=== PATIENT | female | born 1955 | race African-American/Black ===

== ENCOUNTER 2020-12-05 19:22 | Emergency (ER) | payer OTHER, SELFPAY | END 2020-12-05 19:24 | disposition left against medical advice (07) | PROVIDERS: PCP Family Medicine | DX: Z53.21 Procedure and treatment not carried out due to patient leaving prior to being seen by health care provider (principal) | CPT/HCPCS: 99199 ==

== ENCOUNTER 2021-10-29 15:20 | Emergency (ER) | payer MEDICARE, SELFPAY ==
--- NOTE | ~2021-10-29 | XR_ITS ---
XR foot LT min 3V DATE: 10/29/2021 15:40 INDICATION: Kicked step stool. Left fifth toe and metatarsal pain TECHNIQUE: 4 views COMPARISON: None FINDINGS: There is postoperative changes from bunionectomy. Osteopenia. No recent fracture or dislocation, periosteal reaction or bone destruction is detected. Prominent posterior calcaneal enthesopathy. IMPRESSION: No fracture is detected Reviewed, dictated and finalized at location B. IMPRESSION: No fracture is detected
--- NOTE | 2021-10-29 15:38 | ED.LOWEXIN ---
HPI - Extremity Injury (Lower) General Chief Complaint: Extremity Injury, Lower Stated Complaint: L TOE INJURY Time Seen by Provider: 10/29/21 15:38 Source: patient, RN notes reviewed and old records reviewed Mode of arrival: ambulatory Limitations: no limitations History of Present Illness HPI Narrative: 66 year old female who presents to [facility] care with complaints of injury to her left 5th toe when she hit her foot on wooden stool 6 days ago. Patient continues to have swelling to 5th toe but is concerned because she is now having some swelling into her lateral foot and lateral ankle region. Patient is able to walk on left foot without difficulty, pulses strong to left foot. Patient has not taken any OTC medication for discomfort or swelling of foot, has not applied any ice or elevated left foot consistently MD complaint: foot injury (left 5th toe) Onset (ago): day(s) (6) Injury: Left: toes (left 5th toe) Type of Injury: blunt Place: home Context: direct blow Other symptoms: none Related Data Allergies Allergy/AdvReac Type Severity Reaction Status Date / Time codeine Allergy Mild Unverified 11/27/08 20:07 Review of Systems Review of Systems: CONSTITUTIONAL: Denies fever, chills, or sweats. EYES: Denies visual changes, redness, or discharge. ENT: Denies rhinorrhea, congestion, sore throat, or otalgia. CARDIOVASCULAR: Denies chest pain, palpitations, or edema. RESPIRATORY: Denies cough or dyspnea. GASTROINTESTINAL: Denies abdominal pain, nausea, vomiting, or diarrhea. GENITOURINARY: Denies dysuria or hematuria. SKIN: Denies rash or itching. MUSCULOSKELETAL: Denies back pain, positive left fifth toe pain, or myalgia. NEUROLOGIC: Denies headache, numbness, or weakness. PSYCHIATRIC: Denies anxiety or depression. All systems reviewed & are unremarkable except as noted in HPI and below PMFSH Past Medical History Medical History (Updated 10/29/21 @ 16:18 by Colleen Blum NP) Hx of migraines Surgical History Surgical History (Updated 10/29/21 @ 15:45 by Colleen Blum NP) History of bunionectomy of both great toes History of hysterectomy Hx of cholecystectomy S/P lumpectomy, left breast Family History Family History Other Diabetes mellitus Hypertension Social History Social History Smoking status: Never smoker Alcohol intake: never Comments At time of signature, agree with nursing past medical, surgical, social and family history. There is no relevant family history pertinent to the presenting complaint Exam Narrative: GENERAL: Well-appearing, well-nourished, and in no acute distress. HEAD: Normocephalic, atraumatic. EYES: PERRLA and EOMI. ENT: Nares clear, no rhinorrhea or epistaxis. Mucous membranes moist. TMs normal, throat pink with no lesions or exudates or tonsillar swelling NECK: Supple. No lymphadenopathy CHEST: Clear to auscultation. No respiratory distress. SaO2 100% on room air no cough or congestion noted no tachypnea. HEART: Regular rate and rhythm. No murmur heard. Normal peripheral pulses. ABDOMEN: Soft, nontender, nondistended, normal active bowel sounds. EXTREMITIES: Normal range of motion. No edema.Exception noted to left 5th toe which is swollen with some bruising noted. Patient also has some swelling to the lateral side of left foot and left lateral ankle, pulses strong left foot and sensation is intact. SKIN: Warm, dry, no rash. NEURO: No focal deficits. Alert and oriented x3. Course Course Level of Care: Express Care Visit Vital Signs Vital signs: Vital Signs Temperature 35.9 C L 10/29/21 15:41 Pulse Rate 54 L 10/29/21 15:41 Respiratory Rate 16 10/29/21 15:41 Blood Pressure 151/78 H 10/29/21 15:41 Pulse Oximetry 100 10/29/21 15:41 Temperature 35.9 C L 10/29/21 15:41 Pulse Rate 54 L 10/29/21 15:41 Respiratory Rate 16 10/29/21 15:41
[2021-10-29 15:41] VITALS: BP 151/78; PULSE 54; RESP 16; TEMP 35.9; O2SAT 100
== END 2021-10-29 16:23 | disposition home or self-care (01) ==
PROVIDERS: Emergency Provider Registered Nurse; PCP Family Medicine
DX: S90.122A Contusion of left lesser toe(s) without damage to nail, initial encounter (principal); W22.8XXA Striking against or struck by other objects, initial encounter
CPT/HCPCS: 73630; 99213; G0463

== ENCOUNTER 2024-07-06 15:05 | Outpatient (CLI) | payer MEDICARE, SELFPAY ==
--- NOTE | ~2024-07-06 | MM_ITS ---
EXAMINATION: MM screening [facility] BI w carisa HISTORY: Screening TECHNIQUE: Craniocaudal and mediolateral oblique 3-D tomosynthesis images were obtained and synthetic 2-D images were generated. CAD analysis was submitted and interpreted. COMPARISON: Comparison to multiple prior studies sequentially, with oldest reviewed study dated 03/17. BREAST PARENCHYMAL COMPOSITION: There are scattered areas of fibroglandular density. FINDINGS: No significant change to benign-appearing left breast calcifications. There is no evidence of suspicious mass, calcification, or architectural distortion to suggest malignancy in either breast . There has been no suspicious interval change. IMPRESSION: 1. No mammographic evidence of malignancy. 2. Recommend routine screening mammography in one year. BI-RADS Category 2: Benign finding(s). Reviewed, dictated and finalized at location A. [employer]
--- OUTSIDE RECORDS SUMMARY | 2024-07-13 03:55 | XMS_ITS | Data Portability ---
Author Organization [facility] Socitive, Main Office Address [address] [place] [address] Assessment No assessment recorded. Plan of Treatment Reminders Order Date Submit Date Provider Last Modified By Organization Details Last Modified Time Details Appointments Any 15 2024 11:00A LUIS FERNANDO Burton Not available Not available Not available Lab vitamin B12 + folate, serum or blood [address] (Lab), [address] [place], [address], 03/02/2024 08:32:24 vitamin D3, 25-hydrox y, serum [address] (Lab), [address] [place], [address], 03/02/2024 08:32:24 magnesium , serum or plasma [address] (Lab), [address] [place], [address], 03/02/2024 08:32:25 lipid panel, serum [address] (Lab), [address] [place], [address], 03/02/2024 08:32:24 CBC w/ auto diff [address] (Lab), [address] [place], [address], 03/02/2024 08:32:24 TSH, serum or plasma [address] (Lab), [address] [place], [address], 03/02/2024 08:32:24 CMP, serum or plasma [address] (Lab), [address] [place], [address], 03/02/2024 08:32:24 TSH, serum or plasma [address] (Lab), [address] [place], [address], 03/02/2024 08:32:24 glycohemo globin, total, blood [address] (Lab), [address] [place], [address], 03/02/2024 08:32:23 Referral None recorded. Procedures None recorded. Surgeries None recorded. Imaging MAMMO, screening , digital, bilateral [address], [address] [place] [address] , [place], [address], 07/10/2024 09:01:51 DEXA, axial skeleton [address] , [place], [address], 04/12/2024 09:43:17 Medication Orders cholecalc iferol (vitamin D3) 25 mcg (1,000 unit) tablet 2023 024 [facility] #[facility]857, [address] [place], [place], [id number], 06/05/2024 12:39:11 triamcino lone acetonide 0.1 % topical ointment 2023 024 [facility]38, [address], [place], [id number], 06/05/2024 12:37:48 cyanocoba wade (vit B-12) 1,000 mcg sublingua l tablet 2023 024 [facility] #35229, [address] [place], [place], [id number], 06/05/2024 12:37:45 Patient TargetsNo targets recorded. Patient Instructions Encounter Date Encounter Id Patient Instructions Last Modified By Organization Details Last Modified Time 02/24/2024 [id number] get some compression stockings otc , or elevate feet with heating pad 20 min daily [email or web address] Not available 03/02/2024 16:50:11 06/05/2024 [id number] dementia rating scale-2* [email or web address] Not available 06/06/2024 08:09:13 alcohol misuse* Not available 06/06/2024 08:09:19 depression screening* Not available 06/06/2024 08:09:26 multi-dimensiona l health assessment questionnaire* [email or web address] Not available 06/06/2024 08:09:07 Personalized a lt Plan and Screening Recommendations Advance Directives - Do you have one? Advance Directives - Do we have your advance directive on file in your health record? Primary Prevention/Interven tion (prevents or decreases the chance of common diseases from occurring) Smoking Risk: Non Smoker Alcohol Misuse Screening: Negative Weight: Appropriate Overwei ght continue your current weight loss efforts try to lose 5% of your body weight try to lose 10% of your body weight Physical activity: minimum of 10-20 minutes of activity that causes mild breathlessness/day minimum of 20-30 minutes activity that causes mild breathlessness/day Nutrition: Good Average Fall Risk (screened today): Low Vaccines Pneumococcal: Ordered Recommended today Recommended today, but you have declined No further needed Influenza: Chronic Disease Risks Stroke: Low Risk I have no recommendations Heart Attack: Low risk I have no recommendations Clogging of the Arteries: Low risk I have no recommendations Diabetes: Low Risk I have no recommendations Secondary Prevention/Interven tion (detects treatable diseases before they may cause symptoms, disability, or ) Breast Cancer Screening with mammogram: Your next mammogram: Ordered Recommended today Cervical/Uterine/Ov kar Cancer Screening: Osteoporosis Screening: Date Screening Last Performed: Colon Cancer Screening: In: Ordered Recomme nded Date Screening Last Performed: pt. unsure of last test competed, she believes it's been close to 10 years ago. Eye Disease Screening: Dementia Risk: Low I have no recommendations Depression Screening: Negative [email or web address] Not available 06/05/2024 10:44:11 Reason for Referral None Reported. Results Created Date Observation Date Name Description Value Unit Range Abnormal Flag Note LastModifiedBy Organization Detail LastModifiedTime 02/27/20 22 XR, shoul la nena, 2 or more view No observ ation record ed. [id number] [facility] [address], [place], [address], 08/19/2022 07:40:42 03/16/20 22 03/16/2022 , [facility] No observ ation record ed. [id number] [facility] Orders [address] [place], [address], 08/19/2022 07:40:42 03/16/20 22 , [facility] mity, nonva scula r, compl ete [facility] [address] [place] [address] [phone] Patien t Name: OJSETTE STILL Access ion #: [id number] Sex: F : 1954 0 Locati on: RA2 Attend ing Physic estefanía: ELMAUREEN IB, RUNDA Orderi ng Physic estefanía: ELMAUREEN IB, RUNDA Exam Date: 022 9:41 AM Exam Name: US EXT NON VASCUL AR LIMITE D Admitt ing Diagno sis(es ): RADIOL OGY REPORT - FINAL EXAM: US EXT NON VASCUL AR LIMITE D HISTOR Y: Bumps on lower legs 66-yea r-old female with bilate ral lower extrem ity palpab le abnorm alitie s, varico se veins. COMPAR EDDIE: None availa ble. TECHNI QUE: Bilate ral lower extrem ity superf icial ultras ound examin ation was perfor med in the area of the patien t's palpab le lumps. FINDIN GS: There are multip le comple x solid- cystic nodule s in the subcut aneous fat of the left lower leg medial ly, none of which demons trate international specialist al color Dopple r blood flow. There is a 2.8 mm echoge aleshia shadow ing nodule in the right lower leg medial ly. Page 1 of 2 [facility] Name: JOSETTE STILL Access ion #: [id number] Sex: F : 1954 0 Exam Date: 9:41 AM Exam Name: US EXT NON VASCUL AR LIMITE D Admitt ing Diagno sis(es ): IMPRES JILLIAN: 1. Comple x solid cystic nodule s in the subcut aneous fat of the left lower leg medial ly sugges tive of chroni dion thromb osed varico se veins. 2. Echoge aleshia shadow ing focus in the right lower leg subcut aneous fat sugges tive of phlebo lith. Create d and electr onical ly signed by: Evaristo bridges MD Signed Date: 4:51 PM (CT) Dictat ed by: Evaristo bridges MD DD: 4:51 PM (CT) DT: 4:51 PM (CT) Page 2 of 2 [id number] [facility] (Imaging) [address] [place], [address], 08/19/2022 07:40:42 03/16/20 22 MAMMO , scree leisa, digit al, bilat eral [facility] [address] [place] [address] [phone] [facility] JOS[facility] STILL Access ion #: [id number] Sex: F : 1954 0 Locati on: RA2 Attend ing Physic estefanía: ELKHAT IB, RUNDA Orderi ng Physic estefanía: ELKHAT IB, RUNDA Exam Date: 022 9:41 AM Exam Name: DIGITA L TERRY BILAT SCREEN Admitt ing Diagno sis(es ): RADIOL OGY REPORT - FINAL EXAM: MG DIGITA L TERRY BILAT SCREEN HISTOR Y: Screen ing mammog josé 66-yea r-old female with no curren t breast compla ints. COMPAR EDDIE: 2015 TECHNI QUE: Bilate ral CC and MLO views of the breast s were perfor med. Digita l Mammog laisha images were obtain ed. CAD (compu ter assist ed detect ion) was utiliz ed. FINDIN GS: There are scatte red areas of fibrog landul ar densit y. No masses , asymme tries, suspic ious calcif icatio ns, or angi ectura l distor tion are seen. Page 1 of 2 [facility] JOSETTE STILL Access ion #: [id number] Sex: F : 1954 0 Exam Date: 022 9:41 AM Exam Name: DIGITA L TERRY BILAT SCREEN Admitt ing Diagno sis(es ): IMPRES JILLIAN: BIRADS 1: Assess ment comple te. Negati ve. Recomm end annual screen ing mammog laisha. Accord ing to the [employer], yearly mammog perry are recomm ended starti ng at age 40 and contin uing as long as the woman is in good health . Clinic al Breast Exam should be part of the period ic health exam-a bout every 3 years for women in their 20s and 30s and every year for women 40 and over. Breast self-e xam is an option for women in their 20s. Any breast change noted on the breast self-e xam she would be report ed prompt ly to the [facility] er. A negati ve mammog laisha report should not discou rage follow -up or biopsy of a clinic ally signif icant findin g and/or abnorm ality. Dense breast tissue may obscur e small neopla sms. This cody nolasco has been entere d into a mammog laisha remind er system with a target date for her next mammog josé. Create d and electr onical ly signed by: Evaristo bridges MD Signed Date: 2:34 PM (CT) Dictat ed by: Evaristo bridges MD DD: 2:34 PM (CT) DT: 2:34 PM (CT) Page 2 of 2 [id number] [facility] (Imaging) [address] [place], [address], 08/19/2022 07:40:42 03/16/20 22 03/16/2022 MAMMO , scree leisa, bilat eral No observ ation record ed. [id number] [facility] Orders [address] [place], [address], 08/19/2022 07:40:42 04/11/20 24 04/11/2024 DEXA, axial skele ton No observ ation record ed. [email or web address] [facility] [address] [place], [address], 06/05/2024 12:36:45 07/06/19 25 07/06/2024 MAMMO , scree leisa, digit al, bilat eral No observ ation record ed. [email or web address] [address], [address], 07/10/2024 10:22:12 Result Notes None recorded. Problems Name Problem SNOMED Code Status Onset Date Resolution Date Notes Provider Name and Address Organization Details Recorded Time Arthritis of right knee 2709123169074 102 Active 2019 Not Available [facility] 3 07:32:24 Pain of left shoulder joint 7729229412196 9109 Active 2021 Not Available [facility] 3 07:32:24 Complainin g of - upper back ache Active Not Available [facility] 3 07:32:24 Ankle pain 847306323 Active Not Available [facility] 3 07:32:24 Shoulder joint pain 567721035 Active Not Available [facility] 3 07:32:24 Pain in right knee Active 2019 Not Available [facility] 3 07:32:24 Pain in limb 42480017 Active Not Available [facility] 3 07:32:25 Adult health examinatio n Active 2023 LUIS FERNANDO Morin [address], [place], [address] , Serious Parody [facility] [employer] [facility] 4 10:31:37 Screening for osteoporos is Active 2023 LUIS FERNANDO Morin [address], [address], [place], [address] , Serious Parody [facility] 4 10:32:15 Screening mammograph y Active 2023 LUIS FERNANDO Morin [address], [address], [place], [address] , Serious Par[employer] [facility] 4 10:38:22 Family history of diabetes mellitus 450417273 Active 2023 her Dad LUIS FERNANDO Morin [address], [address], [place], [address] , Serious Parody [facility] 4 10:41:03 At increased risk of nutritiona l deficit 415858776 Active 2023 LUIS FERNANDO Morin [address], [place], [address] , Serious Parody [facility] 4 10:42:28 Venous varices 543129197 Active 2023 LUIS FERNANDO Morin [address], [address], [place], [address] , [facility] [employer] [facility] 4 12:45:00 Eczema 65456034 Active 2023 LUIS FERNANDO Morin [address], [place], [address] , [facility] [employer] [facility] 4 12:33:59 Serum vitamin B12 below reference range 528135051 Active 2023 LUIS FERNANDO Morin [address], [place], [address] , [facility] [employer] [facility] 4 12:36:28 Vitamin D below reference range 066799747 Active 2023 LUIS FERNANDO Morin [address], [place], [address] , [facility] [employer] [facility] 4 12:36:44 Problem Notes None recorded. Procedures Surgical History Date Name Laterality Status Provider Name and Address Organization Details Recorded Time 07/06/19 25 screening mammography completed Chandan Momin RN [facility] [employer] [facility] 07/10/2024 10:22:07 06/05/20 24 Medicare Wellness CPT Code, subsequent completed September KRISTEN Calixto [facility] [employer] [facility] 06/05/2024 10:17:05 excision of bunion completed Not Available [facility] 08/19/2022 07:27:35 Hysterectomy completed Not Available [facility] 08/19/2022 07:27:35 Imaging Results Imaging Date Name Status LastModified by Organiz [facility] Details LastModified Time 03/16/2022 US, lower extremity completed [id number] [facility] Lab Orders [address] [place], [address], 08/19/2022 07:40:42 03/16/2022 US, extremity, nonvascular, complete completed [id number] [facility] (Imaging) [address] [place], [address], 08/19/2022 07:40:42 03/16/2022 MAMMO, screening, digital, bilateral completed [id number] [facility] (Imaging) [address] [place], [address], 08/19/2022 07:40:42 03/16/2022 MAMMO, screening, bilateral completed [id number] [facility] Orders [address] [place], [address], 08/19/2022 07:40:42 02/26/2022 XR, shoulder, 2 or more view completed [id number] [facility] [address] [facility] [address], [place], [address], 08/19/2022 07:40:42 04/11/2024 DEXA, axial skeleton completed [email or web address] [facility] [address] [place], [address], 06/05/2024 12:36:45 07/06/2024 MAMMO, screening, digital, bilateral active [id number] [facility] [address], [place], [address], 07/10/2024 10:22:12 Procedure Notes None recorded. Medical Equipment None Reported. Allergies Allergen ID Allergen Name Allergen Category Reaction Reaction Severity Criticality Documentation Date Start Date Code Code System Note Provider Name and Address Organization Details Recorded Time 86969 codeine medicatio n nausea Not available Not available 02/24/2024 2670 RxNorm Nicolasa Eason RN [facility], [place] [facility] [place] [facility] 10:12:40 Medications Name Sig Start Date Stop Date Status Note LastModified by Organization Details LastModified Time cyclobenzap rine 10 mg tablet TK 1 T PO QHS PRN 03/03 completed Not Available Not Available Not Available prednisone 10 mg tablet Take by oral route 4pills daily x 3 days, 3 pills daily x 3 days , 2 pills daily x 3 days and 1 pill daily x 3 days then stop 02/23 completed Not Available Not Available Not Available ibuprofen 800 mg tablet TK 1 T PO Q 8 H PRN FOR PAIN 03/03 completed Not Available Not Available Not Available hydrocodone 5 mg-acetamin ophen 325 mg tablet active Not Available Not Available No t Available clobetasol 0.05 % topical cream APPLY A THIN LAYER TO THE AFFECTED AREA(S) BY TOPICAL ROUTE 2 TIMES PER DAY 02/26 completed Not Available Not Available Not Available triamcinolo ne acetonide 0.1 % topical cream active Not Available Not Available Not Available prednisone 10 mg tablets in a dose pack Take 1 tab by mouth, 3 times a day for 3 daysTake 1 tab by mouth 2 times a day for 2 daysTake 1 tab by mouth once a day for 1 day 03/05 completed Not Available Not Available Not Available Kenalog 10 mg/mL suspension for injection In office injection administe red by the provider 03/05 completed NDC: 0003- 0494- 20, 60546 95, 07/22 Not Available Not Available Not Available triamcinolo ne acetonide 0.1 % topical ointment APPLY A THIN LAYER TO THE AFFECTED AREA(S left foot dorsum ) BY TOPICAL ROUTE 2 TIMES PER DAY 2023 active Not Available Not Available Not Avai lable cyanocobala min (vit B-12) 1,[address] 1 tablet twice a day by sublingua l route for 30 days. 2023 active Not Available Not Available Not Avai lable diclofenac sodium 50 mg tablet,holly yed release active Not Available Not Available Not Available methylpredn isolone 4 mg tablets in a dose pack FPD active Not Available Not Available Not Available Vitamin C active Not Available Not Cydney ilable Not Available zinc active Not Available Not Availa ble Not Available Vitamin D3 active Not Available Not Av ailable Not Available lidocaine (PF) 10 mg/mL (1 %) injection solution In office injection administe red by the provider 02/26 completed NDC: 0409- 4276- 17 Not Available Not Available Not Available cholecalcif daniela (vitamin D3) 25 mcg (1,000 unit) tablet Take 1 tablet every day by oral route with meal(s) for 30 days. 2023 active Not Available Not Available Not Avai lable Suprep Bowel Prep Kit 17.5 gram-3.13 gram-1.6 gram oral solution active Not Available Not Available Not Available ropivacaine (PF) 5 mg/mL (0.5 %) injection solution Take 20 mg by injection route. 03/05 completed C2228 A, 08/19 Not Available Not Available Not Available Afluria 4686-9074 45 mcg (15 mcg x 3)/0.5 mL intramuscul ar suspension TO BE ADMINISTE RED BY PHARMACIS T FOR IMMUNIZAT ION active Not Available Not Available No t Available Fluvirin 45 mcg (15 mcg x 3)/0.5 mL intramuscul ar suspension INJECT 0.5 ML INTRAMUSC ULARLY DIRECTED. active Not Available Not Available No t Available Afluria Qd 2018- (36 mos up)(PF)60 mcg (15 mcg x4)/0.5 mL IM syringe active Not Available Not Available N ot Available Vitals Date Recorded Body mass index (BMI) Body height Body weight Provider Name and Address Organization Details Last Updated DateTime 02/26/2022 33.2 kg/m2 175.26 cm 270401.28 g Not Available [facility] 08/19/2022 07:29:20 Date Recorded Body mass index (BMI) Body height Oxygen saturation Oxygen saturation in Arterial blood by Pulse oximetry Heart rate Body temperature Body weight Systolic blood pressure Diastolic blood pressure Provider Name and Address Organization Details Last Updated DateTime 2 33.1 kg/m2 175.26 cm 97 % 97 % 55 /min 97.3 [degF] 741306. 69 g 150 mm[Hg] 100 mm[Hg] Not Available [facility] 3 07:29:18 Date Recorded Body height Body mass index (BMI) Body weight Body temperature Respiratory rate Oxygen saturation Oxygen saturation in Arterial blood by Pulse oximetry Heart rate Systolic blood pressure Diastolic blood pressure Provider Name and Address Organization Details Last Updated DateTime 4 175.26 cm 32.5 kg/m2 89619.3 2 g 97.5 [degF] 16 /min 100 % 100 % 48 /min 144 mm[Hg] 92 mm[Hg] Nicolasa Eason RN [place] [employer] [facility] 4 10:18:06 Date Recorded Body height Body mass index (BMI) Body weight Body temperature Heart rate Oxygen saturation Oxygen saturation in Arterial blood by Pulse oximetry Systolic blood pressure Diastolic blood pressure Provider Name and Address Organization Details Last Updated DateTime 4 175.26 cm 32.9 kg/m2 683647. 1 g 98.1 [degF] 42 /min 100 % 100 % 140 mm[Hg] 82 mm[Hg] Nicolasa Eason RN [place] [facility] [place] [facility] 4 12:25:42 Social History Question Answer Notes LastModified by Organizat ion Details LastModified Time Tobacco Smoking Status Never Smoker Not Available [facility] 08/19/2022 07:27:03 What Is Your Level Of Alcohol Consumption? None [id number] Information not available 08/19/2022 Sex: Unknown Functional Status None recorded. Mental Status None recorded. Family History Relationship Description Onset Age of this Age Resolved Age Notes LastModified by Organization Details LastModified Time Mother Hypertensive disorder [id number] [id number] Not available 08/19/2022 07:27:38 Father Diabetes mellitus [id number].053 [id number] Not available 08/19/2022 07:27:38 Father Kidney disease [id number].090 [id number] Not available 08/19/2022 07:27:38 Medical History Condition Response ARTHRITIS Y Gynecological HistoryNo gynecological history recorded. Obstetrics History GPAL:G 0 P 0 0 0 0 Immunizations Vaccine Type Date Status Note Provider Nam e and Address Organization Details Recorded Time Influenza, split virus, quadrivalent, preservative 6 completed Not Available [facility] 08/19/2022 07:40:21 Past Encounters Encounter ID Performer Location Encounter Start Date Encounter Closed Date Diagnosis/Indication Diagnosis SNOMED-CT Code Diagnosis ICD10 Code Diagnosis Note [id number] [facility]o [facility] [address] [place] [address] 02/26/2022 00:00:00 02/26/2022 12:21:26 [id number] [facility] [place] [address] 03/05/2022 00:00:00 03/06/2022 06:01:26 [id number] LUIS FERNANDO Morin [facility] Christel lewis [address] [place] [address] 02/24/2024 09:55:35 02/24/2024 10:46:22 Adult health examination 862902053 Z00.00 Screening for osteoporosis 070735865 Z13.820 Screening mammography 24 137041 Z12.31 Family his tory of diabetes mellitus 165639816 Z83.3 At [facility] risk of nutritional deficit 660679404 Z91.89 Venous varices 744759677 I83.93 left ankle and right [id number] LUIS FERNANDO Morin [facility] [address] [address] 06/05/2024 12:18:57 06/05/2024 12:48:19 Adult health examination 590851001 Z00.00 Screening for disorder 800902298 Z13.9 Eczema 88989262 L30.9 left foot , dorsal aspect Serum darcie min B12 below reference range 737820347 R79.89 Vitamin D below reference range 190555425 E55.9 Arthritis of right knee 8300347916 447724 M13.861 Venous varices 056210820 I83.93 Health Concerns Section Related Observation LastModified by Organization Detai ls LastModified Time None Recorded Concern Status LastModified by Organization Details LastModified Time None Recorded Advance Directives Directive None Recorded Payers Encounter Date Sequence Insurance Name Policy Number Policy Wooten Covered Member ID Wooten Member ID Guarantor Name 02/24/2024 1 [facility] (MEDICARE REPLACEMENT/A DVANTAGE - PPO) [id number] Josette Contreras [id number] Josette Contreras 06/05/2024 1 [facility] (MEDICARE REPLACEMENT/A DVANTAGE - PPO) [id number] Josette Contreras [id number] Josette Contreras Notes Date Note Type Note Provider Name and Address Organization Details Recorded Time 02/26/2022 text/html ShoulderReported bypatient.Location: sterior Quality:aching; throbbing Severity:moderate Timing:chronic; gradual Aggravating Factors:carrying; pushing/pulling Alleviating Factors:heat; ice; rest; elevation; NSAIDs Associated Symptoms:no numbness; no tingling; no swelling; no redness; no warmth; no ecchymosis; no catching/locking; no popping/clicking; no buckling; no grinding; no instability; no radiation down arm; no drainage; no fever; no chills; no weight loss; no change in bowel/bladder habits;weakness Not Available [employer] 02/26/2022 12:21:26 02/24/2024 text/html ymca 2 days per week 1.5 to 2 hours . . had a colonoscopy , told to repeat in 10 years LUIS FERNANDO Morin [address], [place], [address], [employer] 03/02/2024 16:51:29 06/05/2024 text/html rash on foot res olved but now discolored , LUIS FERNANDO Morin [address], [place], [address], [employer] 06/22/2024 09:06:40 OBGyn Episode No OBEpisode recorded.
== END 2024-07-06 15:06 | disposition home or self-care (01) ==
PROVIDERS: PCP Family Medicine; Visit Provider Physician Assistant
DX: Z12.31 Encounter for screening mammogram for malignant neoplasm of breast (principal)
CPT/HCPCS: 77063; 77067

== ENCOUNTER 2024-11-22 13:31 | Emergency (ER) | payer MEDICARE, SELFPAY ==
--- NOTE | ~2024-11-22 | XR_ITS ---
XR ankle LT min 3V 11/22/2024 14:13 Indication: Left ankle swelling and pain Procedure: 4 views left ankle Comparison: Left foot series dated 10/29/2021 Findings: Moderate diffuse soft tissue swelling. No acute fracture or traumatic malalignment. There a re degenerative calcaneal enthesophytes. There are vascular calcifications. Impression: 1: No acute fracture. Reviewed, dictated and finalized at location A. Impression: 1: No acute fracture.
[2024-11-22 13:43] VITALS: BP 142/86; PULSE 58; RESP 16; TEMP 36; O2SAT 100
--- NOTE | 2024-11-22 14:10 | ED_ITS ---
HPI - Extremity Injury (Lower) General Chief Complaint: Extremity Injury, Lower Stated Complaint: L ANKLE PAIN/SWELLING Time Seen by Provider: 11/22/24 14:00 Source: patient and RN notes reviewed Mode of arrival: ambulatory Limitations: no limitations History of Present Illness HPI Narrative: 69-year-old female Presents Express Care complaining of pain and swelling left ankle for 5 days. Patient reports she was doing garden work 5 days ago for approximally 3-4 hours. Patient denies any apparent injury to her left ankle. Patient denies any bug bites or stings. She said she woke up next day with increased swelling and medial pain left ankle pain. Patient has been doing ice without relief. Patient says it hurts to bear weight on her left ankle. Patient denies any numbness, tingling, redness, bruising or any other injuries. Patient has a decent significant past medical history. Patient denies any gout history or history of hypertension. Related Data Allergies Allergy/AdvReac Type Severity Reaction Status Date / Time codeine Allergy Mild Unknown Verified 11/22/24 14:00 Review of Systems Review of Systems: CONSTITUTIONAL: Denies fever, chills, or sweats. EYES: Denies visual changes, redness, or discharge. ENT: Denies rhinorrhea, congestion, sore throat, or otalgia. CARDIOVASCULAR: Denies chest pain, palpitations, or edema. RESPIRATORY: Denies cough or dyspnea. GASTROINTESTINAL: Denies abdominal pain, nausea, vomiting, or diarrhea. GENITOURINARY: Denies dysuria or hematuria. SKIN: Denies rash, wound, or itching. MUSCULOSKELETAL: Denies back pain, joint pain, or myalgia. Positive for left ankle swelling and pain NEUROLOGIC: Denies headache, numbness, or weakness. PSYCHIATRIC: Denies anxiety or depression. All other systems reviewed are negative, except as documented in HPI. [facility] Past Medical History Medical History Hx of migraines Surgical History Surgical History History of bunionectomy of both great toes History of hysterectomy S/P lumpectomy, left breast Hx of cholecystectomy Family History Family History Other Diabetes mellitus Hypertension Social History Social History Smoking status: Never smoker Alcohol intake: never Comments At the time of my signature, I reviewed and agree with the nursing past medical, surgical, social, and family history. There is no relevant family history pertinent to the patient complaint. Exam Narrative: GENERAL: This is a well-nourished, well-developed adult, in no apparent distress. They are non ill-appearing, nontoxic appearing. HEAD: normocephalic, atraumatic. EYES: Sclera clear/white. Vision is grossly intact. Conjunctiva normal. Extraocular movement intact. EARS: External ears normal Hearing grossly intact. NOSE: External nose normal THROAT: Mucous membranes moist NECK: Neck supple CARDIOVASCULAR: Regular rate and rhythm RESPIRATORY: Respiratory rate normal, respiratory effort nonlabored, no respiratory distress NEURO: awake, alert, and oriented to person, place and time. There were no obvious focal neurologic abnormalities. EXTREMITIES: Left ankle: No obvious deformity or injury, bruising, redness. Her swelling throughout the left ankle. Normal dorsiflexion plantar flexion of left ankle. There is tenderness with movement of left ankle. Tenderness to palpation to the medial ankle. Capillary refill less than 3 seconds. Left pedal Pulse 2 +palpable. Normal sensation. Neurovascular status intact distal injury. Patient is able to wiggle her toes. Negative Licea's test BACK: Nontender without deformity. Course Course Emergency Course: Portions of this record may have been created with voice recognition software Level of Care: Express Care Visit Vital Signs Vital signs: Vital Signs Temperature 96.8 F L 11/22/24 13:43 Pulse Rate 58 L 11/22/24 13:43 Respiratory Rate 16 11/22/24 13:43 Blood Pressure 142/86 H 11/22/24 13:43 Pulse Oximetry 100 11/22/24 13:43 Temperature 96.8 F L 11/22/24 13:43 Pulse Rate 58 L 11/22/24 13:43 Respiratory Rate 16 11/22/24 13:43 Blood Pressure 142/86 H 11/22/24 13:43 Pulse Oximetry 100 11/22/24 13:43 Reviewed MDM - Extremity Injury (Lower) MDM Narrative Medical decision making narrative: Left ankle x-ray shows no evidence of fracture or acute findings. Likely ankle strain given mechanism of injury. Patient given ice pack an Carlos wrap for compression comfort. Discussed physical exam findings. Advised supportive measures and signs/symptoms to go to the ER. Pt is appropriate for outpt treatment and f/u. Differential Diagnosis Differential diagnosis: Likely ankle sprain and strain, ankle fracture and other (Gout) Imaging Data Radiologist's impression: ITS Impressions Ankle X-Ray 11/22/24 14:16 Impression: 1: No acute fracture. Critical Care Time Critical Care Time Critical Care Time: No Discharge Plan Discharge Clinical Impression: Injury of ankle, left Qualifiers: Encounter type: initial encounter Qualified Code(s): S99.912A - Unspecified injury of left ankle, initial encounter Patient Disposition: Home Condition: Stable Instructions: Ankle Sprain (ED) Additional Instructions: Your x-ray of her left ankle is negative for any fractures or acute findings. Rest and elevate the leg; bear weight as tolerated Apply ice 15-20 minute intervals several times a day Keep it wrapped with CARLOS or use a soft ankle splint Motrin 600mg -800mg every 8 hours, alternate with Tylenol 1000mg every 8 hours as needed Follow up with your primary care provider or orthopedist in 1 week if pain persists. Patient Language: Turkish Follow-up/Referrals: Henri,LUIS FERNANDO So [Primary Care Provider] - Matt Gallego MD [Physician] - Time of Disposition: 14:25
== END 2024-11-22 14:39 | disposition home or self-care (01) ==
PROVIDERS: PCP Physician Assistant
DX: S99.912A Unspecified injury of left ankle, initial encounter (principal); X58.XXXA Exposure to other specified factors, initial encounter; Y93.H2 Activity, gardening and landscaping
CPT/HCPCS: 73610; 99213; G0463